=== PATIENT | male | born 1950 | race Caucasian/White ===

== ENCOUNTER → 2023-10-11 | Outpatient (CLI) | payer MEDICARE, SELFPAY ==
[2023-10-11 09:26] LABS: Hematocrit 40.4 % (40-54); Hemoglobin 13.3 g/dL (13.0-16.5); Mean Corp Hgb Conc 32.9 g/dL (32-36); Mean Corpuscular Hgb 29.5 pg (27.0-32.0); Mean Corpuscular Volume 89.6 fL (80-94); Mean Platelet Vol. 9.4 fl (6.2-12.0); Platelet Count 169 K/mm3 (150-450); RBC Distribution Width CV 13.3 % (11.6-14.6); RBC Distribution Width SD 43.7 fl (35.1-43.9); Red Blood Count 4.51 M/mm3 (4.6-6.2); White Blood Count 4.6 K/mm3 (4.4-11.0)
[2023-10-11 09:40] LABS: Anion Gap 4 (5-15); BUN 14 mg/dL (7-18); BUN/Creat Ratio 16.6 RATIO (10-20); Calcium,Total 9.3 mg/dL (8.5-10.1); Chloride 105 mmol/L (98-107); Creatinine, Serum 0.84 mg/dL (0.70-1.30); EST Glomerular Filtration Rate 95 mL/min (>60); Est Glom Filt Rate - Afr Amer 115 mL/min (>60); Glucose 104 mg/dL (74-106); Potassium 3.8 mmol/L (3.5-5.1); Sodium Level 143 mmol/L (136-145)
--- NOTE | 2023-10-11 17:00 | PCM.TILTTABL ---
Summary Pre Test Resting HR: 81 Pre Test Resting BP: 137/92 Minimum Test HR: 81 Maximum Test HR: 95 Minimum Test BP: 86/59 Maximum Test BP: 166/94 Physician Tilt Table Report Patient's Physicians Primary Care Physician: Bridger Holcomb Indications/Diagnosis: Syncope Procedure Comments: Patient was brought to the noninvasive lab in the process of the nonsedated state. Informed consent was obtained. EKG was obtained and the patient was put in the 70 degree head upright tilt position. Initial heart rate was 83 bpm in sinus rhythm with a blood pressure 137/92 mmHg. The patient remained in this position for almost 30 minutes. There were fluctuations in the blood pressure to a mj of 86/59 mmHg with pulse remaining in the 80s. The patient did not complain of any symptoms. The patient was then placed back in the recumbent position and blood pressure improved and remained stable. Summary: Mildly orthostatic blood pressure change with no significant symptoms noted.
[2023-10-11 17:05] VITALS: BP 137/92; BP 166/94; BP 86/59
== END | disposition home or self-care (01) ==
PROVIDERS: Internal Medicine Cardiovascular Disease; PCP Family Medicine; Referring Provider Family Medicine; Visit Provider Family Medicine
DX: Z01.812 Encounter for preprocedural laboratory examination (principal); R55 Syncope and collapse
CPT/HCPCS: 36415; 80048; 85027; 93660; J7040; A4216

== ENCOUNTER 2024-07-30 11:19 | Day surgery (SDC) | payer MEDICARE, SELFPAY ==
--- NOTE | 2024-07-19 17:06 | HP.SP.EV_ITS ---
Visit History Visit Info Date of Eval: 07/19/24 Today is Visit #: 1 Embroidery Designer: LEONIDES History Attending Doctor: Medical Diagnosis: Throat cancer, GERD, dysphagia Date of Onset of Diagnosis: 2005 Previous speech therapy: No Other Relevant Medical History/Diagnoses/Surgery: Juan Francisco is a 73M who was referred to speech therapy for dysphagia due to throat cancer. He was diagnosed with throat cancer in 2005 and stated that he has been dealing with trouble with swallowing since then. He also reported that he has had his throat stretched 3 times within that last 5-6 years, and is scheduled to have it done again in 07/30/24. Smoking Status: Former smoker Diagnosis Diagnosis: Dysphagia, throat cancer, GERD Pain Is pain an issue with your current prescribed condition?: No Personal Preferred language: Sami Patient Allergies Allergies Allergies: Allergies No Known Allergies Allergy (Verified 07/12/24 13:29) Objective Dysphagia Administered by Administered by: AREA DIRECTOR OF HOME HEALTH SALES Thin Liquids Administred via: Cup Oral Transit: WNL Bolus clearance: fully cleared Gagging: No Cough: throat clear and wet Pharyngeal phase: laryngeal elevation mildly restricted slow initiation Comments: Throat clearing with all cup sips Pureed Administered via: Spoon Positioning: Chin Tuck Oral Preparation: WNL Oral Transit: WNL Bolus clearance: fully cleared Gagging: No Cough: throat clear and wet Pharyngeal phase: laryngeal elevation mildly restricted slow initiation Patient Report: Patient reported multiple swallows Comments: Multiple swallows, drank water to assist clearing. Soft & Bite sized (Mechanical) Administered via: Spoon Oral Preparation: WNL Oral Transit: WNL Gagging: No Cough: throat clear and wet Pharyngeal phase: laryngeal elevation mildly restricted slow initiation Comments: Multiple throat clears and clearing of throat with each swallow. Drank water to aid in clearing fully. Regular Oral Preparation: WNL Oral Transit: WNL Bolus clearance: fully cleared Gagging: No Cough: throat clear and wet Patient Report: Patient reported having to chew slower and take his time with nuts and meat stick. Comments: Pt with wet vocal quality following swallow and multiple swallows. Pt using water to fully clear bolus. Swallowing Impairment Contributing Factors to Swallowing Impairment: Delayed Swallow Initiation and Reduced Laryngeal Excursion Impact Impact on Safety & Functioning: Risk for Aspiration Recommendations Swallowing Treatment: Yes Diet Texture Recommendations Solids: Easy to Chew (Level 7) Liquids: Thin (Level 0) Safety Saftey Precautions/Swallowing Recommendations (Check all that Apply): Small Sips & Bites when Eating, No Straw, Multiple Swallows and Alternate Liquids & Solids Results Swallowing Within Normal Limits: No Swallowing Diagnosis: Dysphagia Unspecified (R13.10) Severity: Moderate Reference: Neuro-QoL instrument Radiation Oncology Patient Plan Plan Plan: Patient stated that he does not want speech therapy at this time, but did agree to participate in a home exercise program consisting of strengthening exercises as well as compensatory strategies. Pt agreeable to scheduling a follow up visit in 4 weeks. Recommendations Treatment Warranted: Yes Treatment Warranted: Dysphagia Progress Prognosis: Fair Frequency Frequency: 1x/Week Duration: Indefinite Patient/Family Goal Patient/Family Goal: Pt stated that he will utilize home exercise program and report back progress at follow up in 4 weeks. Goals that are Established Determination:: Goals will be added/modified as deemed necessary and appropriate. Therapy will be discontinued when results of re-evaluation indicate therapy is no longer needed or lack of progress has been documented. Goal #1-5 Goal #1: Pt will participate in home exercise program to target dysphagia (strengthening exercises and compensatory strategies). Goal #2: Pt will participate in follow up appointment to re-assess after completing home exercise program. Education Patient Instruction Patient Education: Diagnosis, Treatment Plan and Home Exercise Program Person Taught: Patient Teaching Method: Discussion Response to teaching: Verbalize Understanding
--- NOTE | 2024-07-25 22:07 | PAT.ANE_ITS ---
Pre-Assessment Diagnosis/Proposed Procedure Planned Operative Procedure(s): EGD Anesthesia History Anesthesia History - custom protection officer: Anesthesia History - custom protection officer Hx Hospitalization No 07/25/24 10:40 Any Problems With Anesthesia No 07/25/24 10:40 Cholinesterase deficiency No 07/25/24 10:40 You/Your Family Experience No 07/25/24 10:40 fever (hyperthermia) with Relationship Recent Exposure to Contagious Disease Does patient have nerve No 07/25/24 10:40 stimulator Patient instructed to have device shut off --Does patient have Pacemaker or ICD? When Was Last Pacemaker Check QUESTION #4 FULL TEXT: You/Your Family Experience fever (hyperthermia) with Anesthesia Last Oral Intake Last Oral intake: Last Oral Intake NPO since Meds taken in AM with sips of water? Meds patient instructed to take am of surgery PONV PONV - custom protection officer: PONV - custom protection officer Female No 07/25/24 10:40 HX of Motion Sickness No 07/25/24 10:40 HX of N/V After Surgery No 07/25/24 10:40 Non-Smoker Yes 07/25/24 10:40 Duration of Surgery greater No 07/25/24 10:40 than 60 minutes Number of Risk Factors 1 07/25/24 10:40 PONV Score Low Risk 07/25/24 10:40 Height & Weight Height & Weight: Anesthesia: Height & Weight Height 5 ft 9 in 09/22/13 17:16 Respiratory Assessment Respiratory Assessment - custom protection officer: Respiratory Tract Infection Hx - custom protection officer Hx Respiratory Tract Infection No 07/25/24 10:40 STOP Sleep Apnea STOP Sleep Apnea - custom protection officer: STOP Sleep Apnea - custom protection officer Hx Hypertension No 07/25/24 10:40 Hx Sleep Apnea No 07/25/24 10:40 CPAP BIPAP Do you snore loudly (louder No 07/25/24 10:40 than talking or can be heard Do you often feel tired/ No 07/25/24 10:40 fatigued/ sleepy during daytime? Has anyone observed you stop No 07/25/24 10:40 breathing during sleep? STOP Results Negative 07/25/24 10:40 QUESTION #5 FULL TEXT : Do you snore loudly (louder than talking or can be heard through closed doors)? Tobacco Use History Tobacco Use History - custom protection officer: Tobacco Use History - custom protection officer Tobacco Use Smoking Status Former smoker 07/25/24 10:40 Hx Tobacco Use No 07/25/24 10:40 Years Smoking Packs Smoked per Day Smoking Cessation Date was No - quit smoking greater 07/25/24 10:40 within the last 15 years than 15 years ago Hx Smoking Cessation Date Hx Smoking Cessation Counseling Hematologic Medial History Hematologic Hx - custom protection officer: Hematologic Medical Hx - red leader Hx of Blood Transfusion No 07/25/24 10:40 Hx of Transfusion in last 3 No 07/25/24 10:40 Months Date of Last Transfusion (if within last 3 months) Ever experience any problems No 07/25/24 10:40 with transfusion(s)? Specify any problems Hx of Preganancy in last 3 N/A 07/25/24 10:40 Months Nurse Filling Out Transfusion VCHRISTIN 07/25/24 10:40 & Questions: Date: 07/25/24 07/25/24 10:40 Time: 10:40 07/25/24 10:40 Patient unable to answer at this time (ie. confused, unrespo /Reproduction History /Reproductive History - custom protection officer: /Reproductive Hx- custom protection officer Hx Now No 07/25/24 10:40 Gestational Age (in weeks): EDC: Hx Hx Para Hx Section SAB No 07/25/24 10:40 [facility] Medical History (Updated 07/25/24 @ 10:39 by Bisi La) Wears dentures Wears glasses Cancer Alcohol use Thyroid disease Arthritis Back pain Gastric reflux Former smoker Shortness of breath on exertion History of echocardiogram History of stress test Hypotension Cardiology follow-up encounter History of tilt table evaluation Throat cancer GERD (gastroesophageal reflux disease) Dysphagia Home Medications ?Medication ?Instructions ?Recorded ?Last Taken ?Type levothyroxine 100 mcg capsule 100 mcg PO QDAY 07/12/24 Unknown History omeprazole 20 mg capsule,delayed 20 mg PO QDAY 5 Unknown History release aspirin 81 mg capsule 81 mg PO DAILY 07/25/2407/08 History cyanocobalamin (vitamin B-12) 50 50 mcg PO DAILY 07/25 Unknown History mcg tablet (Vitamin B-12) vitamin E 268 mg (400 unit) capsule 268 mg PO DAILY Unknown History Allergy/AdvReac Type Severity Reaction Status Date / Time No Known Allergies Allergy Verified 07/25/24 10:26 Surgical History (Updated 07/25/24 @ 10:39 by Bisi La) History of cardiac catheterization Hx of appendectomy Social History Smoking Status: Former smoker Audit: Pertinent Findings Pertinent Findings EKG Perinent findings: August 09, 2023. Normal sinus rhythm. Stress test pertinent findings: August 17, 2023. Stress EKG is negative for inducible ischemia or infarct. Patient achieved 7 METS. EF is 57%. Echo (EF%) pertinent findings: August 17, 2023. EF is 55 to 60%. No aortic stenosis. Consult pertinent findings: October 18, 2023. Dr. Armstrong. Cardiology. 1. Low blood pressure?continue fludrocortisone for orthostatic hypotension. 2. [id number] 2015. Recommendation Anesthesia Recommendation Anesthesia recommendation: OPTIMIZED for anesthesia
[2024-07-30] VITALS (8 sets, daily range): BP systolic 78–131; BP diastolic 45–81; PULSE 82–100; RESP 14–18; TEMP 36.7–37.5; O2SAT 98–100; BMI 21.8
--- NOTE | 2024-07-30 11:25 | PCM.HP.STD ---
HPI - General General Date of Admission: 07/30/24 Date of Service: 07/30/24 Chief Complaint: Dysphagia HPI Narrative GREGORY WHITNEY, is a 73 M who presents regarding dysphagia. Referral sent by [facility] for difficult time swallowing food and pills for a few years. Had esophageal dilation 3 times and has helped in the past. Former smoker. On 07.06.24 he had a flexible laryngoscopy performed by - all areas normal except for edema at interarytenoid space. Hx of conformal radiation therapy for right tongue base 20yrs ago. ordered an esophagram - scheduled 07.20.24, but he is telling me that he refuses to do this test as he knows what he needs, he needs dilated. He reports that his last EGD with esophageal dilation was 4yrs ago and done in [place]. He denies current tobacco use and rarely uses alcohol. He denies having problems with anesthesia in the past. He states that he also has an appointment with speech therapy, but what are they going to do? Feed me a sandwich and watch me choke? He knows to overchew his food and keep foods moist. He reports cough and throat clearing without increased sinus drainage. He denies heartburn, reflux, nausea, emesis, abdominal pain, excess gas, constipation, diarrhea, hematochezia and melena. His only other complaint is scar tissue over radiation target zone and believed nerve impingement to his right arm and is asking if this can be removed. [facility] Medical History (Updated 07/30/24 @ 11:[address] Jaramillo Friend, DO) Wears dentures Wears glasses Cancer Alcohol use Thyroid disease Arthritis Back pain Gastric reflux Former smoker Shortness of breath on exertion History of echocardiogram History of stress test Hypotension Cardiology follow-up encounter History of tilt table evaluation Throat cancer GERD (gastroesophageal reflux disease) Dysphagia Home Medications ?Medication ?Instructions ?Recorded ?Last Taken ?Type levothyroxine 100 mcg capsule 100 mcg PO QDAY 07/12/24 Unknown History omeprazole 20 mg capsule,delayed 20 mg PO QDAY 07/12/24 Unknown History release aspirin 81 mg capsule 81 mg PO DAILY 07/25/24 07/23/24 History cyanocobalamin (vitamin B-12) 50 50 mcg PO DAILY 07/25/24 Unknown History mcg tablet (Vitamin B-12) vitamin E 268 mg (400 unit) capsule 268 mg PO DAILY 07/25/24 Unknown History Allergy/AdvReac Type Severity Reaction Status Date / Time No Known Allergies Allergy Verified 07/25/24 10:26 Surgical History History of cardiac catheterization Hx of appendectomy Social History Smoking Status: Former smoker ROS Constitutional Constitutional: Denies fatigue, fever(s), poor appetite, weight gain or weight loss Gastrointestinal Gastrointestinal: Denies belching, bloating, change in bowel habits, change in stool character, chewing difficulty, coffee ground emesis, constipation, cramping, diarrhea, dyspepsia, dysphagia, early satiety, excessive flatus, fecal incontinence, heartburn, hematemesis, hematochezia, hemorrhoids, loose stools, melena, nausea, odynophagia, rectal bleeding, tenesmus, vomiting or weight changes Physical Exam Const alert, oriented x3, no apparent distress and healthy appearing General Appearance: cooperative GI normal to inspection, nondistended, normoactive bowel sounds, soft to palpation, non-tender and non-distended Percussion: normal to percussion Rectal Exam: deferred Assessment & Plan Assessment/Plan (1) Dysphagia: PLAN: Assessment and Plan Assessment and Plan (1) Dysphagia: Qualifiers: Dysphagia type: oropharyngeal phase Qualified Code(s): R13.12 - Dysphagia, oropharyngeal phase Plan GREGORY WHITNEY, is a 73 M who presents to the office today for establishment with I regarding dysphagia. Referral sent by [facility] for difficult time swallowing food and pills for a few years. Had esophageal dilation 3 times and has helped in the past. Former smoker. Discussed care plan with him and his present for exam. cardiac clearance for anesthesia schedule EGD with dilation office FU with results
--- NOTE | 2024-07-30 11:51 | PAT.ANE_ITS ---
Pre-Assessment Diagnosis/Proposed Procedure Planned Operative Procedure(s): EGD Anesthesia History Anesthesia History - station installer and repairer: Anesthesia History - station installer and repairer Hx Hospitalization No 07/25/24 10:40 Any Problems With Anesthesia No 07/25/24 10:40 Cholinesterase deficiency No 07/25/24 10:40 You/Your Family Experience No 07/25/24 10:40 fever (hyperthermia) with Relationship Recent Exposure to Contagious Disease Does patient have nerve No 07/25/24 10:40 stimulator Patient instructed to have device shut off --Does patient have Pacemaker or ICD? When Was Last Pacemaker Check QUESTION #4 FULL TEXT: You/Your Family Experience fever (hyperthermia) with Anesthesia Last Oral Intake Last Oral intake: Last Oral Intake NPO since Meds taken in AM with sips of water? Meds patient instructed to take am of surgery PONV PONV - station installer and repairer: PONV - station installer and repairer Female No 07/25/24 10:40 HX of Motion Sickness No 07/25/24 10:40 HX of N/V After Surgery No 07/25/24 10:40 Non-Smoker Yes 07/25/24 10:40 Duration of Surgery greater No 07/25/24 10:40 than 60 minutes Number of Risk Factors 1 07/25/24 10:40 PONV Score Low Risk 07/25/24 10:40 Height & Weight Height & Weight: Anesthesia: Height & Weight Height 5 ft 9 in 09/22/13 17:16 Respiratory Assessment Respiratory Assessment - station installer and repairer: Respiratory Tract Infection Hx - station installer and repairer Hx Respiratory Tract Infection No 07/25/24 10:40 STOP Sleep Apnea STOP Sleep Apnea - station installer and repairer: STOP Sleep Apnea - station installer and repairer Hx Hypertension No 07/25/24 10:40 Hx Sleep Apnea No 07/25/24 10:40 CPAP BIPAP Do you snore loudly (louder No 07/25/24 10:40 than talking or can be heard Do you often feel tired/ No 07/25/24 10:40 fatigued/ sleepy during daytime? Has anyone observed you stop No 07/25/24 10:40 breathing during sleep? STOP Results Negative 07/25/24 10:40 QUESTION #5 FULL TEXT : Do you snore loudly (louder than talking or can be heard through closed doors)? 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 Specify any problems Hx of Preganancy in last 3 N/A 07/25/24 10:40 Months Nurse Filling Out Transfusion VCHRISTIN 07/25/24 10:40 & Questions: Date: 07/25/24 07/25/24 10:40 Time: 10:40 07/25/24 10:40 Patient unable to answer at this time (ie. confused, unrespo /Reproduction History /Reproductive History - station installer and repairer: /Reproductive Hx- station installer and repairer Hx Now No 07/25/24 10:40 Gestational Age (in weeks): EDC: Hx Hx Para Hx Section SAB No 07/25/24 10:40 Active Medications Active Medications: Current Medications Generic Name Dose Route Start Last Admin Trade Name Freq PRN Reason Stop Dose Admin Lactated Ringer's 1,000 mls @ 15 mls/hr 07/30/24 11:45 IV .Q48H THOMAS PFSH Medical History Wears dentures Wears glasses Cancer Alcohol use Thyroid disease Arthritis Back pain Gastric reflux Former smoker Shortness of breath on exertion History of echocardiogram History of stress test Hypotension Cardiology follow-up encounter History of tilt table evaluation Throat cancer GERD (gastroesophageal reflux disease) Dysphagia Home Medications ?Medication ?Instructions ?Recorded ?Last Taken ?Type levothyroxine 100 mcg capsule 100 mcg PO QDAY 07/12/24 Unknown History omeprazole 20 mg capsule,delayed 20 mg PO QDAY 5 Unknown History release aspirin 81 mg capsule 81 mg PO DAILY 07/25/2407/08 History cyanocobalamin (vitamin B-12) 50 50 mcg PO DAILY 07/25 Unknown History mcg tablet (Vitamin B-12) vitamin E 268 mg (400 unit) capsule 268 mg PO DAILY Unknown History Allergy/AdvReac Type Severity Reaction Status Date / Time No Known Allergies Allergy Verified 07/30/24 11:53 Surgical History History of cardiac catheterization Hx of appendectomy Social History Smoking Status: Former smoker Audit: Pertinent Findings HISTORY of Pertinent Findings History of Pertinent Findings: EKG Pertinent Findings EKG Perinent findings August 09, 2023. Normal sinus 07/25/24 22:10 rhythm. Stress Test Pertinent Findings Stress test pertinent findings August 17, 2023. Stress EKG 07/25/24 22:22 is negative for inducible ischemia or infarct. Patient achieved 7 METS. EF is 57%. Echo Pertinent Findings Echo (EF%) pertinent findings August 17, 2023. EF is 55 to 07/25/24 22:22 60%. No aortic stenosis. Consult Pertinent Findings Consult pertinent findings October 18, 2023. 07/25/24 22:18 Patti. Cardiology. 1. Low blood pressure? continue fludrocortisone for orthostatic hypotension. 2. [id number] 2015. Recommendation Anesthesia Recommendation Anesthesia recommendation: OPTIMIZED for anesthesia
--- NOTE | 2024-07-30 12:02 | PAT.ANESEVAL ---
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 When Was Last Pacemaker Check QUESTION #4 FULL TEXT: You/Your Family Experience fever (hyperthermia) with Anesthesia Last Oral Intake Last Oral intake: Last Oral Intake NPO since Meds taken in AM with sips of water? Meds patient instructed to take am of surgery PONV PONV - salesperson surgical appliances: PONV - salesperson surgical appliances Female No 07/25/24 10:40 HX of Motion Sickness No 07/25/24 10:40 HX of N/V After Surgery No 07/25/24 10:40 Non-Smoker Yes 07/25/24 10:40 Duration of Surgery greater No 07/25/24 10:40 than 60 minutes Number of Risk Factors 1 07/25/24 10:40 PONV Score Low Risk 07/25/24 10:40 Height & Weight Height & Weight: Anesthesia: Height & Weight Height 5 ft 9 in 09/22/13 17:16 Respiratory Assessment Respiratory Assessment - salesperson surgical appliances: Respiratory Tract Infection Hx - salesperson surgical appliances Hx Respiratory Tract Infection No 07/25/24 10:40 STOP Sleep Apnea STOP Sleep Apnea - salesperson surgical appliances: STOP Sleep Apnea - salesperson surgical appliances Hx Hypertension No 07/25/24 10:40 Hx Sleep Apnea No 07/25/24 10:40 CPAP BIPAP Do you snore loudly (louder No 07/25/24 10:40 than talking or can be heard Do you often feel tired/ No 07/25/24 10:40 fatigued/ sleepy during daytime? Has anyone observed you stop No 07/25/24 10:40 breathing during sleep? STOP Results Negative 07/25/24 10:40 QUESTION #5 FULL TEXT : Do you snore loudly (louder than talking or can be heard through closed doors)? Tobacco Use History Tobacco Use History - salesperson surgical appliances: Tobacco Use History - salesperson surgical appliances Tobacco Use Smoking Status Former smoker 07/25/24 10:40 Hx Tobacco Use No 07/25/24 10:40 Years Smoking Packs Smoked per Day Smoking Cessation Date was No - quit smoking greater 07/25/24 10:40 within the last 15 years than 15 years ago Hx Smoking Cessation Date Hx Smoking Cessation Counseling Hematologic Medial History Hematologic Hx - salesperson surgical appliances: Hematologic Medical Hx - car hopper Hx of Blood Transfusion No 07/25/24 10:40 Hx of Transfusion in last 3 No 07/25/24 10:40 Months Date of Last Transfusion (if within last 3 months) Ever experience any problems No 07/25/24 10:40 with transfusion(s)? Specify any problems Hx of Preganancy in last 3 N/A 07/25/24 10:40 Months Nurse Filling Out Transfusion VCHRISTIN 07/25/24 10:40 & Questions: Date: 07/25/24 07/25/24 10:40 Time: 10:40 07/25/24 10:40 Patient unable to answer at this time (ie. confused, unrespo /Reproduction History /Reproductive History - salesperson surgical appliances: /Reproductive Hx- salesperson surgical appliances Hx Now No 07/25/24 10:40 Gestational Age (in weeks): EDC: Hx Hx Para Hx Section SAB No 07/25/24 10:40 Active Medications Active Medications: Current Medications Generic Name Dose Route Start Last Admin Trade Name Freq PRN Reason Stop Dose Admin Lactated Ringer's 1,000 mls @ 15 mls/hr 07/30/24 11:45 IV .Q48H THOMAS PFSH Medical History Wears dentures Wears glasses Cancer Alcohol use Thyroid disease Arthritis Back pain Gastric reflux Former smoker Shortness of breath on exertion History of echocardiogram History of stress test Hypotension Cardiology follow-up encounter History of tilt table evaluation Throat cancer GERD (gastroesophageal reflux disease) Dysphagia Home Medications ?Medication ?Instructions ?Recorded ?Last Taken ?Type levothyroxine 100 mcg capsule 100 mcg PO QDAY 07/12/24 Unknown History omeprazole 20 mg capsule,delayed 20 mg PO QDAY 07/12/24 Unknown History release aspirin 81 mg capsule 81 mg PO DAILY 07/25/24 07/23/24 History cyanocobalamin (vitamin B-12) 50 50 mcg PO DAILY 07/25/24 Unknown History mcg tablet (Vitamin B-12) vitamin E 268 mg (400 unit) capsule 268 mg PO DAILY 07/25/24 Unknown History Allergy/AdvReac Type Severity Reaction Status Date / Time No Known Allergies Allergy Verified 07/30/24 11:53 Surgical History History of cardiac catheterization Hx of appendectomy Social History Smoking Status: Former smoker Audit: Pertinent Findings HISTORY of Pertinent Findings History of Pertinent Findings: EKG Pertinent Findings EKG Perinent findings August 09, 2023. Normal sinus 07/25/24 22:10 rhythm. Stress Test Pertinent Findings Stress test pertinent findings August 17, 2023. Stress EKG 07/25/24 22:22 is negative for inducible ischemia or infarct. Patient achieved 7 METS. EF is 57%. Echo Pertinent Findings Echo (EF%) pertinent findings August 17, 2023. EF is 55 to 07/25/24 22:22 60%. No aortic stenosis. Consult Pertinent Findings Consult pertinent findings October 18, 2023. 07/25/24 22:18 Patti. Cardiology. 1. Low blood pressure? continue fludrocortisone for orthostatic hypotension. 2. [id number] 2015. Recommendation Anesthesia Recommendation Anesthesia recommendation: OPTIMIZED for anesthesia
--- NOTE | 2024-07-30 12:08 | PCM.PRE.AN2 ---
ASA Classification* ASA Classification ASA Classification: 3 Assessment & Plan Anesthesia* Anesthesia Assessment Anesthesia Assessment: Discussed sedation and/or anesthesia options, risks, benefits, and alternatives with patient/parents/legal guardian/POA. Questions invited. The patient/parents/legal guardian/POA seems to understand and agrees to proceed with anesthesia plan. Reviewed the physical assessment, medical history, allergy history and patient home medications list prior to surgery/procedure/anesthetic and documented any changes. Performed airway and anesthesia risk assessments. Anesthesia Type Anesthesia Type: MAC History Source History Obtained from:: Patient Anesthesia Focused Assessment* Airway Assessment Mouth opens: >3 cm Mallampati Score: III Teeth Condition: Dentures Labs Anesthesia Preop lab: CBC WBC 4.6 K/mm3 (4.4-11.0) 10/11/23 09:15 10/11/23 RBC 4.51 M/mm3 (4.6-6.2) L 10/11/23 09:15 10/11/23 Hgb 13.3 g/dL (13.0-16.5) 10/11/23 09:15 10/11/23 Hct 40.4 % (40-54) 10/11/23 09:15 10/11/23 Plt Count 169 K/mm3 (150-450) 10/11/23 09:15 10/11/23 CHEMISTRY Potassium 3.8 mmol/L (3.5-5.1) 10/11/23 09:15 10/11/23 Sodium 143 mmol/L (136-145) 10/11/23 09:15 10/11/23 BUN 14 mg/dL (7-18) 10/11/23 09:15 10/11/23 Creatinine 0.84 mg/dL (0.70-1.30) 10/11/23 09:15 10/11/23 Glucose 104 mg/dL (74-106) 10/11/23 09:15 10/11/23 TSH 1.19 uIU/mL (0.358-3.74) 06/29/16 14:49 06/29/16 COAG Pre-Assessment Diagnosis/Proposed Procedure Planned Operative Procedure(s): EGD Anesthesia History Anesthesia History - shingle bolt cutter: Anesthesia History - shingle bolt cutter Hx Hospitalization No 07/25/24 10:40 Any Problems With Anesthesia No 07/25/24 10:40 Cholinesterase deficiency No 07/25/24 10:40 You/Your Family Experience No 07/25/24 10:40 fever (hyperthermia) with Relationship Recent Exposure to Contagious Disease Does patient have nerve No 07/25/24 10:40 stimulator Patient instructed to have device shut off --Does patient have Pacemaker or ICD? When Was Last Pacemaker Check QUESTION #4 FULL TEXT: You/Your Family Experience fever (hyperthermia) with Anesthesia Last Oral Intake Last Oral intake: Last Oral Intake NPO since Meds taken in AM with sips of water? Meds patient instructed to take am of surgery PONV PONV - shingle bolt cutter: PONV - shingle bolt cutter Female No 07/25/24 10:40 HX of Motion Sickness No 07/25/24 10:40 HX of N/V After Surgery No 07/25/24 10:40 Non-Smoker Yes 07/25/24 10:40 Duration of Surgery greater No 07/25/24 10:40 than 60 minutes Number of Risk Factors 1 07/25/24 10:40 PONV Score Low Risk 07/25/24 10:40 Height & Weight Height & Weight: Anesthesia: Height & Weight Height 5 ft 9 in 09/22/13 17:16 Respiratory Assessment Respiratory Assessment - shingle bolt cutter: Respiratory Tract Infection Hx - shingle bolt cutter Hx Respiratory Tract Infection No 07/25/24 10:40 STOP Sleep Apnea STOP Sleep Apnea - shingle bolt cutter: STOP Sleep Apnea - shingle bolt cutter Hx Hypertension No 07/25/24 10:40 Hx Sleep Apnea No 07/25/24 10:40 CPAP BIPAP Do you snore loudly (louder No 07/25/24 10:40 than talking or can be heard Do you often feel tired/ No 07/25/24 10:40 fatigued/ sleepy during daytime? Has anyone observed you stop No 07/25/24 10:40 breathing during sleep? STOP Results Negative 07/25/24 10:40 QUESTION #5 FULL TEXT : Do you snore loudly (louder than talking or can be heard through closed doors)? 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 Specify any problems Hx of Preganancy in last 3 N/A 07/25/24 10:40 Months Nurse Filling Out Transfusion VCHRISTIN 07/25/24 10:40 & Questions: Date: 07/25/24 07/25/24 10:40 Time: 10:40 07/25/24 10:40 Patient unable to answer at this time (ie. confused, unrespo /Reproduction History /Reproductive History - shingle bolt cutter: /Reproductive Hx- shingle bolt cutter Hx Now No 07/25/24 10:40 Gestational Age (in weeks): EDC: Hx Hx Para Hx Section SAB No 07/25/24 10:40 Active Medications Active Medications: Current Medications Generic Name Dose Route Start Last Admin Trade Name Freq PRN Reason Stop Dose Admin Lactated Ringer's 1,000 mls @ 15 mls/hr 07/30/24 11:45 IV .Q48H THOMAS PFSH Medical History Wears dentures Wears glasses Cancer Alcohol use Thyroid disease Arthritis Back pain Gastric reflux Former smoker Shortness of breath on exertion History of echocardiogram History of stress test Hypotension Cardiology follow-up encounter History of tilt table evaluation Throat cancer GERD (gastroesophageal reflux disease) Dysphagia Home Medications ?Medication ?Instructions ?Recorded ?Last Taken ?Type levothyroxine 100 mcg capsule 100 mcg PO QDAY 07/12/24 Unknown History omeprazole 20 mg capsule,delayed 20 mg PO QDAY 07/12/24 Unknown History release aspirin 81 mg capsule 81 mg PO DAILY 07/25/24 07/23/24 History cyanocobalamin (vitamin B-12) 50 50 mcg PO DAILY 07/25/24 Unknown History mcg tablet (Vitamin B-12) vitamin E 268 mg (400 unit) capsule 268 mg PO DAILY 07/25/24 Unknown History Allergy/AdvReac Type Severity Reaction Status Date / Time No Known Allergies Allergy Verified 07/30/24 11:53 Surgical History History of cardiac catheterization Hx of appendectomy Social History Smoking Status: Former smoker Review of Systems (Anesthesia) ROS Narrative System reviewed and no additional complaints, except as documented.
[2024-07-30] MEDS: Lactated Ringers 1,000 ML 15 ML IV (12:10)
--- NOTE | 2024-07-30 12:30 | EGD_PTH ---
PATIENT: GREGORY WHITNEY LOC: EN U#:[id number] AGE/SX: 73/M ROOM: RE07/30/[address]: Dr. Clint Parada DO : 1950 BED: DIS: 07/30/2024 SPEC #: [id number] RECD: 07/31/24 10:41 STATUS: GABINO JENNIFER #: [id number] EDWARD: 07/30/24 12:[address]: Clint Parada DEPT: SURGICAL PATHOLOGY RECD BY: Irwin Jackson ENTERED: 07/31/24 11:30 SP TYPE: EGD BIOPSY MAMIE DR: Bridger Holcomb MD Tissues: A - Esophagus, NOS Procedures: Surgery Specimen Level IV HEADER OPERATION: EGD with biopsy PRE-OP DIAGNOSIS: Dysphagia TISSUE SUBMITTED: A- Distal esophagus biopsy MICROSCOPIC DIAGNOSIS A. Distal esophagus, biopsy: - Squamous mucosa with reactive changes. - Columnar mucosa with goblet cell metaplasia - see note. - Negative for dysplasia. Note: The diagnosis depends on the location of the biopsy and the extent of the mucosal irregularity. If the biopsy originates from the tubular esophagus and the mucosal irregularity extends at least 1 cm above the top of the gastric folds, this represents Acosta mucosa. If the biopsy originates from the gastric cardia and/or the mucosal irregularity is less than 1 cm in extent, this represents intestinal metaplasia. MICROSCOPIC DESCRIPTION Slides are reviewed. GROSS DESCRIPTION A. Received in fixative is one container labeled with the patient's name and designated []. The specimen consists of multiple irregular fragments of light manrique soft tissue that in aggregate measure <0.1 to 0.5 cm. The specimen is totally submitted in one cassette. 07/31/2024 CPT:97091
--- NOTE | 2024-07-30 13:15 | OP.CCLET_ITS ---
07/30/2024 Bridger Holcomb Md Re : Upper GI endoscopy procedure for Juan Francisco Palacios Dear Zhang This procedure was performed on Tuesday, July 30, 2024. My impressions and recommendations are as follows: Impressions : - Abnormal esophageal motility, established esophageal spasm. Dilated. - Z-line irregular, 40 cm from the incisors. Biopsied. - Small hiatal hernia. - No gross lesions in the second portion of the duodenum. Recommendations : - Discharge patient to home. - Resume previous diet. - Continue present medications. - Await pathology results. My findings are described in the full procedure note, which is enclosed. If I can be of further assistance, please feel free to contact me at . Sincerely, Clint Parada, 07/30/2024 1:14:47 PM This report has been signed electronically.
--- NOTE | 2024-07-30 13:15 | OP.EGD_ITS ---
Patient Name: Juan Francisco Palacios Procedure Date: 07/30/2024 12:53 PM Date of : 1950 Age: 73 Procedure: Upper GI endoscopy Indications: Dysphagia Providers: Clint Parada DO Medicines: Monitored Anesthesia Care Patient Profile: This is a 73 year old male. Refer to note in patient chart for documentation of history and physical. Patient has symptoms of dysphagia with both liquids and solids. His most recent EGD for dilation. Complications: No immediate complications. Procedure: Pre-Anesthesia Assessment: - Prior to the procedure, a History and Physical was performed, and patient medications and allergies were reviewed. The patient is competent. The risks and benefits of the procedure and the sedation options and risks were discussed with the patient. All questions were answered and informed consent was obtained. Patient identification and proposed procedure were verified by the physician in the pre-procedure area. Mental Status Examination: alert and oriented. Airway Examination: normal oropharyngeal airway and neck mobility. Respiratory Examination: clear to auscultation. CV Examination: normal. Prophylactic Antibiotics: The patient does not require prophylactic antibiotics. Prior Anticoagulants: The patient has taken no anticoagulant or antiplatelet agents except for NSAID medication. ASA Grade Assessment: II - A patient with mild systemic disease. After reviewing the risks and benefits, the patient was deemed in satisfactory condition to undergo the procedure. The anesthesia plan was to use monitored anesthesia care (MAC). Immediately prior to administration of medications, the patient was re-assessed for adequacy to receive sedatives. The heart rate, respiratory rate, oxygen saturations, blood pressure, adequacy of pulmonary ventilation, and response to care were monitored throughout the procedure. The physical status of the patient was re-assessed after the procedure. After obtaining informed consent, the endoscope was passed under direct vision. Throughout the procedure, the patient's blood pressure, pulse, and oxygen saturations were monitored continuously. The gastroscope was introduced through the mouth, and advanced to the second part of duodenum. The upper GI endoscopy was accomplished without difficulty. The patient tolerated the procedure well. Scope In: 1:05:32 PM Scope Out: 1:10:12 PM Total Procedure Duration Time 0 hours 4 minutes 40 seconds Findings: Abnormal motility was noted in the esophagus. The cricopharyngeus was abnormal. There are extra peristaltic waves in the esophageal body. The distal esophagus/lower esophageal sphincter is spastic, but gives up passage to the endoscope. Secondary peristaltic waves are noted. A guidewire was placed and the scope was withdrawn. Dilation was performed with a Savary dilator with no resistance at 60 Fr. The dilation site was examined and showed moderate mucosal disruption. Estimated blood loss was minimal. The Z-line was irregular and was found 40 cm from the incisors. Biopsies were taken with a cold forceps for histology. Verification of patient identification for the specimen was done. Estimated blood loss was minimal. A small hiatal hernia was present. No other significant abnormalities were identified in a careful examination of the stomach. No gross lesions were noted in the second portion of the duodenum. Impression: - Abnormal esophageal motility, established esophageal spasm. Dilated. - Z-line irregular, 40 cm from the incisors. Biopsied. - Small hiatal hernia. - No gross lesions in the second portion of the duodenum. Recommendation: - Discharge patient to home. - Resume previous diet. - Continue present medications. - Await pathology results. Procedure Code(s): --- Professional --- 93256, Esophagogastroduodenoscopy, flexible, transoral; with insertion of guide wire followed by passage of dilator(s) through esophagus over guide wire 05287, 59,51, Esophagogastroduodenoscopy, flexible, transoral; with biopsy, single or multiple CPT copyright 2021 [employer] [place] [employer]. All rights reserved. The codes documented in this report are preliminary and upon director of promotions review may be revised to meet current compliance requirements. Clint Parada DO 07/30/2024 1:14:47 PM This report has been signed electronically. Number of Addenda: 0 Note Initiated On: 07/30/2024 12:53 PM
--- NOTE | 2024-07-30 13:21 | PCM.POST.ANE ---
Anesthesia: Postop Eval I Current Vital Signs Temperature: 98.8 F Pulse Rate: 86 Blood Pressure: 78/51 Respiratory Rate: 16 Pulse Ox: 100 Oxygen Delivery Method: Nasal Cannula Oxygen Flow Rate (L/min): 4 Assessment Airway patent: Yes Spontaneous unlabored respirations: Yes Mental status: Awake nausea: No Vomiting: No Anesthesia Complication: No Fluid Hydration Crystalloid volume administer (ml): 400 Total IV fluid infused: 400 Progress Note Anesthesia document: Postop Eval 1 completed: Yes
--- NOTE | 2024-07-30 13:33 | POSTOPAN2_ITS ---
Anesthesia Postop Eval I Sum Postop Eval Completion status Anesthesia document: Postop Eval 1 completed: Yes Anesthesia Postop Eval I Summary Anesthesia Postop Eval I Summary: Anesthesia Postop Eval I: Assessment Summary Airway patent Yes 07/30/24 13:22 [email or web address] Spontaneous unlabored Yes 07/30/24 13:22 [email or web address] respirations Mental status Awake 07/30/24 13:22 [email or web address] nausea No 07/30/24 13:22 [email or web address] [email or web address].[email or web address] Vomiting No 07/30/24 13:22 [email or web address] Anesthesia Postop Eval I: Fluid Summary Crystalloid volume administer 400 07/30/24 13:22 [email or web address] (ml) Colloids volume administered ( ml) Blood Product volume administered (ml) Total IV fluid infused 400 07/30/24 13:22 [email or web address] Anesthesia Postop Eval I: Summary Notes Anesthesia Complication No 07/30/24 13:22 [email or web address] Anesthesia Complication Comment: Post-operative progress note Anesthesia: Postop Eval II Evaluation Mental status: Awake and Calm Pain Level: 0 nausea: No Vomiting: No Complications Anesthesia Complication: No
--- NOTE | 2024-07-30 13:33 | PCM.POSTANE2 ---
Anesthesia Postop Eval I Sum Postop Eval Completion status Anesthesia document: Postop Eval 1 completed: Yes Anesthesia Postop Eval I Summary Anesthesia Postop Eval I Summary: Anesthesia Postop Eval I: Assessment Summary Airway patent Yes 07/30/24 13:22 [employer]LESO[employer] [email or web address] Spontaneous unlabored Yes 07/30/24 13:22 PEOPLESO[employer] [email or web address] respirations Mental status Awake 07/30/24 13:22 PEOPLESOFT ANALYST.APAT nausea No 07/30/24 13:22 PEOPLESO[employer] ANALYST.APAT Vomiting No 07/30/24 13:22 PEOPLESOFT [email or web address] Anesthesia Postop Eval I: Fluid Summary Crystalloid volume administer 400 07/30/24 13:22 PEOPLESOFT ANALYST.APAT (ml) Colloids volume administered ( ml) Blood Product volume administered (ml) Total IV fluid infused 400 07/30/24 13:22 PEOPLESOFT [email or web address] Anesthesia Postop Eval I: Summary Notes Anesthesia Complication No 07/30/24 13:22 PEOPLESOFT [email or web address] Anesthesia Complication Comment: Post-operative progress note Anesthesia: Postop Eval II Evaluation Mental status: Awake and Calm Pain Level: 0 nausea: No Vomiting: No Complications Anesthesia Complication: No
== END 2024-07-30 13:55 | disposition home or self-care (01) ==
LOC: EN 11:22 → AC 11:23
PROVIDERS: PCP Family Medicine; Referring Provider Family Medicine; Visit Provider Internal Medicine Gastroenterology
PROC: 0DJ08ZZ Inspection of Upper Intestinal Tract, Via Natural or Artificial Opening Endoscopic (ICD-10-PCS; CPT 43235; principal; 2024-07-30 12:25)
DX: K22.4 Dyskinesia of esophagus (principal); K44.9 Diaphragmatic hernia without obstruction or gangrene; K21.9 Gastro-esophageal reflux disease without esophagitis; Z79.899 Other long term (current) drug therapy; Z87.891 Personal history of nicotine dependence
CPT/HCPCS: 43248; 43239; 88305; C1769; J2405

== ENCOUNTER 2024-08-16 15:00 | Outpatient (RCR) | payer MEDICARE, SELFPAY ==
--- NOTE | 2024-08-17 08:35 | HP.SP.DC ---
ST Discharge Summary Discharged: Discharge: Juan Francisco Palacios is being discharged from [facility] speech therapy services at this time. Patient attended initial evaluation on 07/19/24 with presentation of dysphagia secondary to throat cancer. Pt agreed to participation in home exercise program utilizing compensatory strategies and strengthening exercises as well as participation in a follow-up appointment approximately 1 month following the initial evaluation. Patient participated in follow up appointment and both pt and ST agree that, with utilization of compensatory strategies, pt can be discharged at this time. Thank you for allowing me to participate in the care of this patient.
--- NOTE | 2024-09-12 11:52 | HP.SP.EVAL ---
Visit History Visit Info Date of Eval: 07/19/24 Today is Visit #: 1 Phonograph Needle Tip Maker: LEONIDES History Attending Doctor: Referring Doctor: Reason for Referral: DYSPHAGIA. RX HERE Medical Diagnosis: Throat cancer, GERD, dysphagia Date of Onset of Diagnosis: 2005 Previous speech therapy: No Other Relevant Medical History/Diagnoses/Surgery: Juan Francisco is a 73M who was referred to speech therapy for dysphagia due to throat cancer. He was diagnosed with throat cancer in 2005 and stated that he has been dealing with trouble swallowing since then. He also reported that he has had his throat stretched 3 times in the last 5-6 years, and is scheduled to have it done again on 07/30/24. Smoking Status: Former smoker Pain Is pain an issue with your current prescribed condition?: No Personal Preferred language: Slovak Patient Allergies Allergies Allergies: Allergies No Known Allergies Allergy (Verified 07/30/24 11:53) Objective Dysphagia Administered by Administered by: OIL FIELD TESTER Thin Liquids Administred via: Cup Oral Transit: WNL Bolus clearance: fully cleared Gagging: No Cough: throat clear and wet Pharyngeal phase: laryngeal elevation mildly restricted slow initiation Comments: Throat clearing with all cup sips. Pureed Administered via: Spoon Positioning: Chin Tuck Oral Preparation: WNL Oral Transit: WNL Bolus clearance: fully cleared Gagging: No Cough: throat clear and wet Pharyngeal phase: laryngeal elevation mildly restricted slow initiation Patient Report: Patient reported multiple swallows. Comments: Multiple swallows, drank water to assist in clearing. Soft & Bite sized (Mechanical) Administered via: Spoon Oral Preparation: WNL Oral Transit: WNL Bolus clearance: fully cleared Gagging: No Cough: throat clear and wet Pharyngeal phase: laryngeal elevation mildly restricted slow initiation Comments: Throat clears with swallows. Drank water to assist in clearing fully. Regular Oral Preparation: WNL Oral Transit: WNL Bolus clearance: fully cleared Gagging: No Cough: throat clear and wet Pharyngeal phase: laryngeal elevation mildly restricted slow initiation Patient Report: Patient reported having to chew slower and take his time with nuts and meat stick. Comments: Pt with wet vocal quality following swallow and multiple swallows. Pt using water to aid in fully clearing bolus. Swallowing Impairment Contributing Factors to Swallowing Impairment: Delayed Swallow Initiation and Reduced Laryngeal Excursion Impact Impact on Safety & Functioning: Risk for Aspiration Recommendations Swallowing Treatment: Yes Diet Texture Recommendations Solids: Regular (Level 7) Liquids: Thin (Level 0) Safety Saftey Precautions/Swallowing Recommendations (Check all that Apply): Small Sips & Bites when Eating, No Straw, Multiple Swallows and Alternate Liquids & Solids Results Swallowing Within Normal Limits: No Swallowing Diagnosis: Dysphagia Unspecified (R13.10) Severity: Moderate Reference: Neuro-QoL instrument Radiation Oncology Patient Plan Plan Plan: Patient stated that he does not want speech therapy at this time, but did agree to participate in a home exercise program consisting of strengthening exercises as well as compensatory strategies. Pt agreeable to scheduling a follow up visit in 4 weeks. Recommendations Treatment Warranted: Yes Treatment Warranted: Dysphagia Progress Prognosis: Fair Frequency Frequency: 1x/Week Duration: Indefinite Visits in this POC: 1 Patient/Family Goal Patient/Family Goal: Pt stated that he will utilize home exercise program and report back progress at follow up in 4 weeks. Goals that are Established Determination:: Goals will be added/modified as deemed necessary and appropriate. Therapy will be discontinued when results of re-evaluation indicate therapy is no longer needed or lack of progress has been documented. Goal #1-5 Goal #1: Pt will participate in home exercise program to target dysphagia (strengthening exercises and compensatory strategies). Goal #2: Pt will participate in follow up appointment to re-assess after completing the home exercise program. Education Patient has Indicated that the Following Identified Educational Needs: None The Patient has indicated that they have no educational or learning abilities that may effect their care.: Yes Patient Instruction Patient Education: Diagnosis, Treatment Plan and Home Exercise Program Person Taught: Patient Teaching Method: Discussion Response to teaching: Verbalize Understanding
== END 2024-08-16 19:00 | disposition home or self-care (01) ==
LOC: SP 15:00
PROVIDERS: PCP Family Medicine; Referring Provider Family Medicine; Visit Provider Family Medicine
DX: R13.10 Dysphagia, unspecified (principal)
CPT/HCPCS: 92507; 92610